=== PATIENT | female | born 1990 | race Caucasian/White ===

== ENCOUNTER → 2016-11-18 | Outpatient (CLI) | payer BC ==
[2016-11-18 12:14] LABS: Basophils % (A) 0 %; CH 31.4; CHCM 34.1; Eosinophils % (A) 0 %; HCT 38.4 % (34.0-46.0); HDW 2.43; HGB 12.9 gm/dL (11.4-16.0); Luc % (Auto) 2; Lymphocytes # (A) 1.2 k/uL (1.0-4.8); Lymphocytes % (A) 22 %; MCH 31.1 pg (25.0-35.0); MCHC 33.7 g/dL (31.0-37.0); MCV 92.6 fL (80.0-100.0); Mean Platelet Volume 7.8; Monocytes # (A) 0.4 k/uL (0-1.0); Monocytes % (A) 8 %; Neutrophils # (A) 3.9 k/uL (1.3-7.7); Neutrophils % (A) 68 %; RBC 4.15 m/uL (3.80-5.40); RDW 12.9 % (11.5-15.5); WBC 5.7 k/uL (3.8-10.6); WBC (Perox) 5.94
== END | disposition home or self-care (01) ==
LOC: LABWHC1 11:50
PROVIDERS: ATTEND Nurse Practitioner Family
DX: D22.62 Melanocytic nevi of left upper limb, including shoulder (principal); L65.0 Telogen effluvium
CPT/HCPCS: 36415; 82306; 84443; 84481; 85025

== ENCOUNTER → 2018-09-06 | Outpatient (CLI) | payer OTHER ==
[2018-09-06 19:23] LABS: Thyroid Peroxidase Antibodies 45.3 U/mL (0.0-60.0)
[2018-09-06 19:26] LABS: DHEA Sulfate 347.1 ug/dL (26.0-430.0)
[2018-09-06 19:36] LABS: T4, Free (Free Thyroxine) 1.2 ng/dL (0.80-1.80)
[2018-09-06 20:07] LABS: Albumin/Globulin Ratio 2.5 (1.20-2.10); Calcium 9.9 mg/dL (8.7-10.3); Potassium 4.2 mmol/L (3.5-5.5); Total Bilirubin 0.2 mg/dL (0.3-1.2)
== END | disposition home or self-care (01) ==
LOC: LABWHC1 14:52
PROVIDERS: ATTEND Internal Medicine Endocrinology, Diabetes & Metabolism
DX: R53.83 Other fatigue (principal); L65.9 Nonscarring hair loss, unspecified
CPT/HCPCS: 36415; 80053; 82533; 82607; 82627; 84146; 84403; 84439; 84443; 84480; 86376

== ENCOUNTER 2023-09-21 16:01 | Outpatient (CLI) | payer OTHER ==
[2023-09-21 16:45] LABS: Basophils % (A) 0 %; Eosinophils # (A) 0.1 k/uL (0-0.7); Eosinophils % (A) 1 %; HCT 33.3 % (34.0-46.0); HGB 11.3 gm/dL (11.4-16.0); Lymphocytes # (A) 1.5 k/uL (1.0-4.8); Lymphocytes % (A) 16 %; MCHC 33.9 g/dL (31.0-37.0); MCV 91.5 fL (80.0-100.0); Mean Platelet Volume 7.8; Monocytes # (A) 0.4 k/uL (0-1.0); Monocytes % (A) 4 %; Neutrophils # (A) 7.3 k/uL (1.3-7.7); Neutrophils % (A) 78 %; Platelet Count 325 k/uL (150-450); RBC 3.64 m/uL (3.80-5.40); RDW 13.9 % (11.5-15.5); WBC 9.3 k/uL (3.8-10.6)
[2023-09-21 16:59] LABS: Appearance,Urine Cloudy (Clear); Bacteria,Urine Occasional /hpf; Bilirubin,Urine Negative (Negative); Blood,Urine Negative (Negative); Color,Urine Yellow; Glucose,Urine (UA) Negative (Negative); Ketones,Urine Negative (Negative); Leukocyte Esterase,Urine Small (Negative); Mucus,Urine Few /hpf; Nitrite,Urine Negative (Negative); PH, Urine 6.5 (5.0-8.0); Protein,Urine 1+ (Negative); RBC,Urine 2 /hpf (0-5); Specific Gravity,Urine 1.031 (1.001-1.035); Squamous Epithelial Cell,Urine 3 /hpf (0-4); Urobilinogen,Urine <2.0 mg/dL (<2.0); WBC,Urine 5 /hpf (0-5)
[2023-09-21 17:01] LABS: ALT 14 U/L (4-34); AST 17 U/L (14-36); African American GFR (CKD) >90 (>60 ml/min/1.73 sqM); Blood Urea Nitrogen 10 mg/dL (7-17); LDH 138 U/L (120-246); Non-African American GFR(CKD) >90 (>60 ml/min/1.73 sqM); Uric Acid 5.4 mg/dL (3.7-7.4)
[2023-09-21 19:14] VITALS: BP 134/80; PULSE 93; RESP 17; TEMP 97.5
== END 2023-09-21 18:15 | disposition home or self-care (01) ==
LOC: FBPOP 16:01
PROVIDERS: ATTEND Obstetrics & Gynecology
DX: O13.9 Gestational [pregnancy-induced] hypertension without significant proteinuria, unspecified trimester (principal); Z79.82 Long term (current) use of aspirin
CPT/HCPCS: 36415; 59025; 81001; 82565; 82570; 83615; 84156; 84450; 84460; 84520; 84550; 85025

== ENCOUNTER 2023-10-11 09:58 | Inpatient (IN) | payer OTHER ==
[2023-10-11] MEDS ORDERED: TRANEXAMIC 1,000 MG/100ML-NACL 1,000 MG in EMPTY BAG 1 BAG IV PRN (10:20)
[2023-10-11] MEDS ORDERED: CITRIC ACID-SODIUM CITRATE 15 ML CUP PO ONE (10:20)
[2023-10-11] MEDS ORDERED: METHYLERGONOVINE 0.2 MG/ML 1 ML AMP IM PRN (10:20)
[2023-10-11] MEDS ORDERED: miSOPROStoL 200 MCG TAB PO PRN (10:20)
[2023-10-11] MEDS ORDERED: OXYTOCIN 10 UNIT/ML 1 ML VIAL IM PRN (10:20)
[2023-10-11] MEDS ORDERED: LACTATED RINGERS 1,000 ML IV ONE (10:20)
[2023-10-11] MEDS ORDERED: CARBOPROST TROMETHAMINE 250 MCG/ML 1 ML AMP IM PRN (10:20)
[2023-10-11 10:44] LABS: Basophils % (A) 0 %; Eosinophils % (A) 0 %; HCT 35.4 % (34.0-46.0); HGB 12.3 gm/dL (11.4-16.0); Lymphocytes # (A) 1.6 k/uL (1.0-4.8); Lymphocytes % (A) 18 %; MCH 32.1 pg (25.0-35.0); MCHC 34.8 g/dL (31.0-37.0); MCV 92.2 fL (80.0-100.0); Mean Platelet Volume 8.4; Monocytes # (A) 0.3 k/uL (0-1.0); Monocytes % (A) 4 %; Neutrophils # (A) 6.6 k/uL (1.3-7.7); Neutrophils % (A) 76 %; Platelet Count 288 k/uL (150-450); RBC 3.84 m/uL (3.80-5.40); RDW 13.9 % (11.5-15.5); WBC 8.6 k/uL (3.8-10.6)
--- NOTE | 2023-10-11 11:11 | P.HPOB ---
History of Present Illness H&P Date: 10/11/23 Chief Complaint: Scheduled primary section for breech present ation Ms. Paulson is a 32 year old at 37 weeks and 1 day with EDC of 10/31/2023 by 6 week who presents to labor and delivery for primary section for breech presentation. The has been complicated by gestational hypertension. Growth ultrasound at 32 weeks estimates the fetus to be measuring in the 72%ile. work-up: blood type A positive, antibody screen negative, rubella immune, VDRL non-reactive, HBsAg negative, HIV negative, HCV antibody negative, gonorrhea negative, chlamydia negative, 1 hour GTT within normal limits, s/p TDap 08/22. GBS pending. Past Medical History Past Medical History: No Reported History History of Any Multi-Drug Resistant Organisms: None Reported Additional Past Surgical History / Comment(s): lump removed from R breast Past Anesthesia/Blood Transfusion Reactions: No Reported Reaction Past Psychological History: No Psychological Hx Reported Smoking Status: Never smoker Past Alcohol Use History: None Reported Past Drug Use History: None Reported - Past Family History Father Family Medical History: Hypertension Medications and Allergies Home Medications Medication Instructions Recorded Confirmed Type Aspirin [Adult Low Dose Aspirin EC] 81 mg PO DAILY 09/21/23 10/11/23 History Vit No.179/Iron/Folic 1 each PO DAILY 09/21/23 10/11/23 History [ Tablet] Allergies Allergy/AdvReac Type Severity Reaction Status Date / Time No Known Allergies Allergy Verified 10/11/23 10:17 Exam Vital Signs Temp Pulse Resp BP Pulse Ox 10/11/23 10:21 97.3 F L 85 16 136/67 100 Intake and Output 10/10/23 10/11/23 10/11/23 22:59 06:59 14:59 Other: Weight 108.862 kg Focused physical exam is performed. This is a healthy-appearing in no apparent distress. Breathing is non-labored. Abdomen is gravid and non-tender. Extremeties non-tender and non-edematous. heart tones are reactive and reassuring on NST, no contractions on tocometer. Results Result Diagrams: 10/11/23 10:24 Assessment and Plan Assessment: 32 year old at 37 weeks and 1 day presenting for primary section for breech presentation and gestational hypertension Plan: Admit, NPO, mIVF, c/s protocol
[2023-10-11] MEDS ORDERED: MORPHINE SULFATE (PF) 0.3 MG/0.3 ML SYR ONE (11:33)
[2023-10-11] MEDS ORDERED: OXYTOCIN 10 UNIT/ML 1 ML VIAL ONE (11:33)
[2023-10-11] MEDS ORDERED: ONDANSETRON 4 MG/2 ML VIAL ONE (11:33)
[2023-10-11] MEDS ORDERED: NALBUPHINE 10 MG/ML (10 ML MDV) ONE (11:33)
[2023-10-11] MEDS ORDERED: KETOROLAC 30 MG/ML 1 ML VIAL ONE (11:33)
[2023-10-11] MEDS ORDERED: ONDANSETRON 4 MG/2 ML VIAL IVP PRN ×2 (12:20→14:12)
[2023-10-11] MEDS ORDERED: diphenhydrAMINE 50 MG/ML 1 ML VIAL IVP PRN ×2 (12:20→14:12)
[2023-10-11] MEDS ORDERED: NALOXONE 0.4 MG/ML 1 ML VIAL IV PRN (12:20)
--- NOTE | 2023-10-11 12:38 | P.OP ---
Date of Procedure: 10/11/23 Preoperative Diagnosis: 1. Term IUP at 37 weeks 2. Gestational Hypertension 3. Complete Breech Presentation Postoperative Diagnosis: Same Procedure(s) Performed: Primary Lower Transverse Section Implants: None Anesthesia: spinal Surgeon: Keely Bonilla Patient Relations Representative #1: Veronika Lincoln Estimated Blood Loss (ml): 580 IV fluids (ml): 1,200 Urine output (ml): 250 (clear yellow) Pathology: none sent Condition: stable Disposition: floor Indications for Procedure: Ms. Paulson is a 32 year old at 37 weeks with gestational hypertension and a fetus in complete breech presentation. The options of external cephalic version versus primary section were offered to the patient and she elected for primary section. The risks, benefits, and alternatives to section were discussed with the patient including risk of bleeding, infection, damage to surrounding structures including bladder/bowels/ureters, and post-operative VTE. The patient understands these risks and desires to proceed with section. Operative Findings: Colorless amniotic fluid. Viable female infant in complete breech presentation. Apgars 9 and 9 at 1 and 5 minutes, respectively. Weight 7 pounds and 14 ounces (3570 grams) Description of Procedure: The patient was taken to the operating room where spinal anesthesia was found to be adequate. Two grams of Ancef were given for infection prophylaxis. She was prepared and draped in the dorsal supine position with a leftward tilt. A Pfannenstiel skin incision was made with the scalpel. The incision was carried down to the fascia with a bovie. The fascia was incised and extended laterally with Stark scissors. The superior aspect of the fascia was grasped with Shahid clamps. The underlying rectus muscle was dissected off sharply with Stark scissors. In a similar fashion, the inferior aspect of the fascia was elevated with Shahid clamps and the rectus muscle and pyramidalis were dissected off. Excellent hemostasis was achieved with the bovie. The rectus muscle was in the midline down to the level of the pubic symphysis. Pre- peritoneal fatty tissue was bluntly dissected to expose the peritoneum. The peritoneum was found to be free of adherent bowel and entered sharply with Stark scissors. The peritoneal incision was extended superiorly and inferiorly to the bladder reflection with good visualization of the bladder. The bladder blade was inserted and vesicouterine peritoneum was identified. Intraabdominal survey revealed scant, clear peritoneal fluid and the thinned-out lower uterine segment. The vesicouterine peritoneum was opened with scissors and the bladder flap was developed. The bladder blade was repositioned to keep the bladder out of the operative field. The lower uterine segment was incised with a scalpel. The amniotic sac was ruptured with an Allis clamp and clear fluid was noted. The uterine incision was extended bluntly with lateral and upward traction. The fetus was in complete breech position. The right leg was palpated and delivered gradually through the hysterotomy followed by the buttocks. Fundal pressure was continued and both legs were extended using the Pinard maneuver. With gentle pressure the left leg and body gradually delivered. Once the scapula could be seen the baby was gently rotated and both arms were delivered using the Loveseat maneuver. Maintaining head flexion in a modified Aabjkdqb-[id number]-hlth maneuver the head was delivered without difficulty.The mouth and nose were suctioned with a bulb. The cord was clamped and cut. was noted to be spontaneously crying. The infant was handed off to the automobile washer steam. IV oxytocin was initiated to facilitate uterine contractions. The placenta was delivered intact with manual massage of uterine fundus. The uterus was then exteriorized and the inside of the uterus was gently wiped with a lap sponge to assure complete removal of placental membranes. The uterine incision was closed with a 0- Polysorb suture in a running locked fashion. A second imbricating layer of 0- Polysorb was placed along the incision. The ovaries and tubes were found to be normal. The uterus, tubes, and ovaries were then gently returned to the abdominal cavity. The blood clots and fluid were wiped out of the abdomen and pelvis with moist laparotomy sponges. The pelvis was copiously suction irrigated.The uterine incision was reinspected and excellent hemostasis was noted. The fascial layer was closed with a 0-Vicryl suture. The subcutaneous tissue was reapproximated with 2-0 Plain Gut. The skin was closed with 4-0 Monocryl in a subcuticular fashion. The patient tolerated the procedure well. All the counts were correct times two. The patient was taken to the recovery room in a stable condition.
[2023-10-11] MEDS ORDERED: METOCLOPRAMIDE 5 MG/ML 2 ML VIAL IVP PRN (14:12)
[2023-10-11] MEDS ORDERED: ZOLPIDEM 5 MG TAB PO PRN (14:12)
[2023-10-11] MEDS ORDERED: diphenhydrAMINE 25 MG CAP PO PRN (14:12)
[2023-10-11] MEDS ORDERED: diphenhydrAMINE 50 MG CAP PO PRN (14:12)
[2023-10-11] MEDS ORDERED: OXYTOCIN 30 UNITS/500 ML NS 30 UNIT in SALINE 1 500ML.BAG IV SCH (14:15)
[2023-10-11] MEDS: ACETAMINOPHEN TAB 500 MG TAB PO SCH ×2 (15:04→20:28)
[2023-10-11] MEDS: LACTATED RINGERS 1,000 ML IV SCH (16:35)
[2023-10-11] MEDS: KETOROLAC 15 MG/ML 1 ML VIAL IVP SCH ×2 (18:12→23:48)
[2023-10-11] MEDS: SENNOSIDES-DOCUSATE SODIUM 1 EACH TAB PO SCH (20:27)
[2023-10-12] MEDS: LACTATED RINGERS 1,000 ML IV SCH ×2 (00:51→00:52)
[2023-10-12] MEDS: IBUPROFEN 600 MG TAB PO SCH ×4 (00:52→23:36)
[2023-10-12] MEDS: ACETAMINOPHEN TAB 500 MG TAB PO SCH ×4 (03:05→21:30)
[2023-10-12] MEDS: KETOROLAC 15 MG/ML 1 ML VIAL IVP SCH ×3 (05:13→18:11)
[2023-10-12 07:54] LABS: Basophils % (A) 0 %; Eosinophils # (A) 0.1 k/uL (0-0.7); Eosinophils % (A) 1 %; HCT 33.1 % (34.0-46.0); Lymphocytes # (A) 1.4 k/uL (1.0-4.8); Lymphocytes % (A) 16 %; MCH 31.5 pg (25.0-35.0); MCHC 33.4 g/dL (31.0-37.0); MCV 94.3 fL (80.0-100.0); Mean Platelet Volume 8.3; Monocytes # (A) 0.4 k/uL (0-1.0); Monocytes % (A) 4 %; Neutrophils # (A) 7.1 k/uL (1.3-7.7); Neutrophils % (A) 78 %; Platelet Count 232 k/uL (150-450); RBC 3.51 m/uL (3.80-5.40); RDW 14.1 % (11.5-15.5); WBC 9.1 k/uL (3.8-10.6)
[2023-10-12] MEDS: SENNOSIDES-DOCUSATE SODIUM 1 EACH TAB PO SCH ×2 (08:21→21:30)
--- NOTE | 2023-10-12 08:26 | P.PN ---
Progress Note - Text Progress Note Date: 10/12/23 Ms. Paulson is a 32-year-old female had a history of under spinal an algesia with Astramorph 300 g for postop pain. Today patient is comfortable sitting in her bed. Mild itching over the face, nausea overnight resolved. Today patient rated her pain level 2 out of 10 in severity. Denied any fever, drowsiness, confusion. Denied any weakness, tingling sensation in her lower extremities. Denied any bowel or bladder problems. Moving all extremities without any difficulty. Able to walk without any difficulties. Vitals: Hemodynamically stable Continue oral pain medication as per primary team.
--- NOTE | 2023-10-12 08:34 | P.PNOBGPC ---
Subjective - Subjective Principal diagnosis: s/p primary section Interval history: The patient is doing well this morning and had no acute events overnight. She has no complaints this morning. She reports minimal lochia, passing flatus, voiding without difficulty, ambulating, and eating/drinking without nausea or vomiting. She is formula feeding her without difficulty. She denies chest pain, shortness of breathing, fevers, or chills overnight. She denies pain or swelling in the legs. Patient reports: Reports appetite normal, Reports voiding normally, Reports pain well controlled, Reports ambulating normally : doing well Objective - Vital Signs Latest vital signs: Vital Signs Temp Pulse Resp BP Pulse Ox 10/12/23 08:25 98.0 F 72 16 113/73 97 10/12/23 04:55 17 10/12/23 04:00 97.7 F 70 18 91/68 99 10/12/23 03:00 18 10/12/23 00:49 16 10/12/23 00:00 97.8 F 65 18 116/68 97 10/11/23 23:00 17 10/11/23 21:00 18 10/11/23 20:00 98 F 78 18 117/72 98 10/11/23 19:00 18 10/11/23 16:51 97.5 F L 76 16 136/77 97 10/11/23 14:35 61 16 118/66 99 10/11/23 14:05 70 16 114/64 100 10/11/23 13:35 71 16 116/66 97 10/11/23 13:20 67 16 116/58 98 10/11/23 13:05 68 16 115/60 98 10/11/23 12:50 65 16 126/58 96 10/11/23 12:35 97.6 F 78 16 111/59 99 10/11/23 10:21 97.3 F L 85 16 136/67 100 Intake and Output 10/11/23 10/12/23 10/12/23 22:59 06:59 14:59 Intake Total 209 Output Total 400 Balance -191 Intake: Intake, IV Titration 209 Amount Oxytocin 30 Units/500 ml 209 Ns 30 unit In Saline 1 500ml.bag @ Per Protocol IV .Q0M [facility] Rx#:[id number] Output: Urine 400 Uretheral (Webb) 400 Other: # Voids 1 - Exam Extremities: Present: normal Abdomen: Present: normal appearance, soft Incision: Present: normal, dry, intact Uterus: Present: normal, firm - Labs Labs: Abnormal Lab Results - Last 24 Hours (Table) 10/12/23 Range/Units 07:27 RBC 3.51 L (3.80-5.40) m/uL Hgb 11.0 L (11.4-16.0) gm/dL Hct 33.1 L (34.0-46.0) % Assessment and Plan Assessment: 32 year old now POD#1 s/p 1LTCS 2/2 breech presentation and gestational hypertension Plan: 1. Postoperative. Patient meeting all postoperative milestones appropriately. Continue to monitor. 2. Gestationa HTN. All blood pressures normotensive. 3. Viable female infant. Doing well at bedside. Dispo: Anticipate discharge home tomorrow.
[2023-10-13] MEDS: ACETAMINOPHEN TAB 500 MG TAB PO SCH ×2 (03:23→10:11)
[2023-10-13] MEDS: IBUPROFEN 600 MG TAB PO SCH ×2 (05:52→13:03)
[2023-10-13] MEDS: SENNOSIDES-DOCUSATE SODIUM 1 EACH TAB PO SCH (08:10)
[2023-10-13 08:21] VITALS: BP 119/82; PULSE 78; RESP 16; TEMP 97.6
--- NOTE | 2023-10-13 08:50 | P.DS ---
Providers Date of admission: 10/11/23 09:58 Expected date of discharge: 10/13/23 Attending physician: Keely Bonilla MD Primary care physician: Stated None Hospital Course: Ms. Paulson is a 32 year old now POD#2 s/p primary section for breech presentation. was complicated by gestational hypertension. The patient's surgery and post-operative course were uncomplicated. The patient is doing well this morning and had no acute events overnight. She has no complaints this morning. She reports minimal lochia, passing flatus, voiding without difficulty, ambulating, and eating/drinking without nausea or vomiting. doing well at bedside, formula feeding. She denies chest pain, shortness of breathing, fevers, or chills overnight. She denies pain or swelling in the legs. Postoperative restrictions are reviewed with the patient including pelvic rest for 6 weeks, no lifting heavier than 15 pounds for 6 weeks. The patient is encouraged to call the office if she experiences any heavy bleeding, foul-smelling discharge, breast complaints, or any if she has any other concerns. She will follow up in the office in 1 week for blood pressure check. She will go home with Motrin and Tylenol, she declines oxycodone. All questions are answered. Assessment: 32 year old POD#2 s/p primary section Patient Condition at Discharge: Good Plan - Discharge Summary New Discharge Prescriptions: New Ibuprofen [Motrin] 600 mg PO Q6HR PRN #30 tab PRN Reason: Mild Pain (Scale 1 To 3) Acetaminophen Tab [Tylenol] 650 mg PO Q6H PRN #30 tab PRN Reason: Mild Pain (Scale 1 To 3) No Action Vit No.179/Iron/Folic [ Tablet] 1 each PO DAILY Aspirin [Adult Low Dose Aspirin EC] 81 mg PO DAILY Discharge Medication List Aspirin [Adult Low Dose Aspirin EC] 81 mg PO DAILY 09/21/23 [History] Vit No.179/Iron/Folic [ Tablet] 1 each PO DAILY 09/21/23 [History] Acetaminophen Tab [Tylenol] 650 mg PO Q6H PRN #30 tab 10/13/23 [Rx] Ibuprofen [Motrin] 600 mg PO Q6HR PRN #30 tab 10/13/23 [Rx] Activity/Diet/Wound Care/Special Instructions: Instructions 1. Do not begin any exercise program for 3 weeks. 2. Do not resume sexual relations for 6 weeks or longer if uncomfortable. 3. You may take tub baths or showers at any time. 4. You may use tampons if desired after 6 weeks. 5. Keep any areas repaired with stitches clean and dry. 6. If you are not nursing, wear a good fitting, supportive bra during the day and limit fluid intake for at least 1 week to prevent breast engorgement. 7. Call the office, , within the next week to make appointment for your 6 week checkup if it has not already been made. 8. Report any of the following occurrences to the doctor promptly: a. Heavy, excessive bleeding b. Chills, fever c. Burning or frequency of urination d. Pain or redness and breasts if nursing e. Increasing pain or swelling of vulva (stitches). In addition to the above instructions, the following additional should be followed: 1. No heavy lifting or straining (exercising) until after 6 week checkup. 2. Keep abdominal incision clean and dry: You may wear a dressing if more comfortable. 3. Make office appointment for 2 weeks after delivery date. Discharge Disposition: HOME SELF-CARE
== END 2023-10-13 15:09 | disposition home or self-care (01) | DRG 540 ==
LOC: 4FBP 09:58
PROVIDERS: ADMIT Obstetrics & Gynecology; ATTEND Obstetrics & Gynecology
PROC: 10D00Z1 Extraction of Products of Conception, Low, Open Approach (ICD-10-PCS; principal; 2023-10-11 12:00)
DX: O32.1XX0 Maternal care for breech presentation, not applicable or unspecified (principal); O13.4 Gestational [pregnancy-induced] hypertension without significant proteinuria, complicating childbirth; O99.73 Diseases of the skin and subcutaneous tissue complicating the puerperium; L29.9 Pruritus, unspecified; Z28.310 Unvaccinated for COVID-19; Z79.82 Long term (current) use of aspirin; Z3A.37 37 weeks gestation of pregnancy; Z37.0 Single live birth
CPT/HCPCS: 85025; 86850; 86900; 86901